=== PATIENT | male | born 1985 | race Caucasian/White ===

== ENCOUNTER 2018-10-30 08:45 | Day surgery (SDC) | payer OTHER ==
[2018-10-30] MEDS ORDERED: CEFAZOLIN SODIUM IN 0.9 % NACL 2 GM/100 ML BAG IV ONE (08:58)
[2018-10-30] MEDS ORDERED: LACTATED RINGERS 1,000 ML IV ONE (09:14)
--- NOTE | 2018-10-30 09:50 | ANESTHESIA ---
Pre-Anesthesia VS, & Labs - Diagnosis right inguinal hernia - Procedure Right inguinal hernia repair Vital Signs: Temp Pulse Resp BP Pulse Ox 36.9 C 62 17 132/84 H 98 10/30/18 09:00 10/30/18 09:00 10/30/18 09:00 10/30/18 09:00 10/30/18 09:00 Height 5 ft 11 in Weight (kg) 92.5 kg - NPO >8 hours Home Medications and Allergies Home Medications: Ambulatory Orders No Known Home Medications 10/22/18 No Known Home Medications 10/22/18 Allergies/Adverse Reactions: Allergies Allergy/AdvReac Type Severity Reaction Status Date / Time No Known Drug Allergies Allergy Verified 10/22/18 09:25 Anes History & Medical History - Anesthetic History Anesthesia Complications: reports: No previous complications Family history of Anesthesia Complications: Denies Family history of Malignant Hyperthermia: Denies - Medical History Cardiovascular: reports: None, Other (history of syncope, negative workup in [place]) Pulmonary: reports: None Gastrointestinal: reports: GERD Urinary: reports: Other Musculoskeletal: reports: None Endocrine/Autoimmune: reports: None Skin: reports: None Smoking Status: Former smoker Exam General: Alert Dental: WNL Mouth Opening: Greater than 4 Fingerbreadths Mallampati classification: II Thyromental Distance: greater than 6 cm Respiratory: Lungs clear Cardiovascular: Regular rate, Normal S1, Normal S2, No murmurs Plan Anesthesia Type: General Consent for Procedure(s) Verified and Reviewed: Yes Code Status: Attempt Resuscitation ASA classification: 2-Mild systemic disease Is this case an emergency?: No
[2018-10-30] MEDS ORDERED: PROPOFOL 200 MG/20 ML VIAL IVP ONE (10:59)
[2018-10-30] MEDS: BUPIVACAINE 0.5% PF 10 ML VIAL ONE ×2 (10:59→11:24)
[2018-10-30] MEDS ORDERED: DEXAMETHASONE 4 MG/ML VIAL IVP ONE (10:59)
[2018-10-30] MEDS ORDERED: KETOROLAC 30 MG/ML VIAL IVP ONE (10:59)
[2018-10-30] MEDS ORDERED: ACETAMINOPHEN 1,000 MG/100 ML 100 ML IV ONE (10:59)
[2018-10-30] MEDS ORDERED: ONDANSETRON 4 MG/2 ML VIAL IVP ONE (10:59)
[2018-10-30] MEDS ORDERED: MIDAZOLAM 2 MG/2 ML VIAL IVP ONE (10:59)
[2018-10-30] MEDS ORDERED: fentaNYL 100 MCG/2 ML VIAL IVP ONE (10:59)
[2018-10-30] MEDS ORDERED: HYDROmorphone 0.5 MG/0.5 ML SYRINGE IVP PRN (11:42)
[2018-10-30] MEDS ORDERED: ONDANSETRON 4 MG/2 ML VIAL IVP PRN (11:42)
[2018-10-30] MEDS ORDERED: HYDROcod/ACETAM 5/325 MG TABLET PO PRN (11:42)
--- NOTE | 2018-10-30 11:47 | OPERATIVE REPORT ---
Operative Report - General Procedure Date: 10/30/18 Planned Procedure: Right inguinal herniorrhaphy without mesh (patient request) Pre-Op Diagnosis: Right inguinal hernia Procedure Performed: Right indirect inguinal herniorrhaphy without mesh Post Op Diagnosis: Right indirect inguinal hernia - Procedure Note Primary Surgeon: Amaury Burch MD Anesthesia Provider: Ricky Lara CRNA Anesthesia Technique: General LMA, Local (30 mL of half percent Marcaine) IV Fluids (mL): 700 Estimated Blood Loss (mL): 10 Drain/Tube Type: Other (None.) Complications: None. - Other Other Information/Narrative: OPERATIVE DESCRIPTION/REPORT: After verbal and written informed consent was obtained detailing the risks of infection, bleeding requiring transfusion with its risks, nerve injury, and , and after I met with the patient confirming the surgery and the site of the surgery and after initialing the site of the surgery with a surgical marker, the patient was brought to the operative suite and placed supine on the operating table. Again, please note that the patient had requested that this repair be done without mesh. Great care was taken to avoid pressure points to prevent pressure necrosis or nerve injury. Monitoring devices were applied along with TEDs and pneumatic compressive stockings (to prevent DVT). The patient received preoperative antibiotics for surgical prophylaxis. Ricky Lara CRNA sedated and anesthetized the patient for the entire procedure. The patient was prepped and draped in the usual sterile manner. With the patient draped my initials were clearly visible. A "time in" then confirmed that the patient was identified with 3 identifiers (name, date and medical record number), the history and physical was in the chart, the signed consent confir jo the procedure was in the chart, the patient was in the correct position, the aforementioned prophylactic measures were in place or given, we had the correct personnel and equipment to complete the procedure and that anesthesia, surgery and nursing were given an opportunity to express any concerns. With the agreement of everyone in the room, we proceeded with the operation. A standard inguinal incision was made and dissection was carried down to the external oblique aponeurosis using a combination of Metzenbaum scissors and Bovie electrocautery. The external oblique aponeurosis was cleared of overlying adherent tissue, and the external ring was delineated. The external oblique was the incised with a scalpel and this incision was carried out to the external ring using Metzenbaum scissors. Having exposed the inguinal canal, the cord structures were from the canal using blunt dissection, and a [place] drain was placed around the cord structures at the level of the pubic tubercle. This [place] drain was then used to retract the cord structures as needed. Adherent cremasteric muscle was dissected free from the cord using Bovie electrocautery. The cord was then explored using a combination of sharp and blunt dissection, and the sac was found anteromedially to the cord structures. The sac was dissected free from the cord structures using a combination of blunt dissection and Bovie electrocautery. Once preperitoneal fat was encountered, the dissection stopped and the sac was high ligated with a 2-0 PDS, transected, the stump cauterized and allowed to retract back into the abdominal cavity. After ensuring that the shelving edge of Poupart's ligament and the conjoined tendon were clearly visualized, these were approximated using a 2-0 Prolene suture starting and at the pubic tubercle and running the suture laterally to form a brand-new internal ring. With the suture tied the internal ring could only admit the very tip of my little finger and there was no compromise of the cord contents. Medially a relaxing incision was made using Bovie electrocautery. The Fab drain was removed. The wound was then irrigated using sterile saline, and hemostasis was obtained using Bovie electrocautery. The incision in the external oblique was approximated using a 3-0 Vicryl in a running fashion, thus reforming the external ring. The fascia and skin was then injected with the 1/2% marcaine for prison pain control. The skin incision was approximated with 4-0 Monocryl in a subcuticular fashion. The skin was prepped with benzoin and steristrips were applied. At this point a time out was performed that confirmed that all the counts were correct, the procedure that was performed, the blood loss, the IV fluids administered, and the patients condition. A dressing was then applied. Gentle downward traction ensured that the testes were well seated in the scrotum. Having tolerated the procedure well, the patient was taken to short stay in good and stable condition. [employer] disclaimer: This document was created in part using voice recognition technology. Because of the inherent limitations of the system ([employer]'s [employer] user manual s tates that the licensee understands that speech recognition is a statistical process and that recognition errors are inherent in the process), occasional same sounding word substitutions and grammatical errors do occur and persist despite proofreading. Please read this document for context.
[2018-10-30 13:46] VITALS: BP 126/75
== END 2018-10-30 08:46 | disposition home or self-care (01) ==
LOC: SDS 08:45
PROVIDERS: ATTEND Surgery
PROC: 0YQ50ZZ Repair Right Inguinal Region, Open Approach (ICD-10-PCS; principal; 2018-10-30 11:00)
DX: K40.90 Unilateral inguinal hernia, without obstruction or gangrene, not specified as recurrent (principal); I10 Essential (primary) hypertension; Z86.19 Personal history of other infectious and parasitic diseases; Z87.891 Personal history of nicotine dependence
CPT/HCPCS: 49505; J0131; J0690; J7120